=== PATIENT | male | born 1970 | race Caucasian/White ===

== ENCOUNTER 2018-10-26 16:34 | Emergency (ER) | payer SELFPAY ==
--- NOTE | 2018-10-26 17:14 | ER ---
Nurse's Notes [facility] Name: Austyn Guerrero Age: 48 yrs Sex: Male : 1970 Arrival Date: 10/26/2018 Time: 16:38 Bed 18 Private MD: Diagnosis: Localized edema;Localized allergic reaction due to bee stings Presentation: 10/26 16:44 Presenting complaint: Patient states: He got stung by bees in both hands, under neath aj1 his right eye, his back 2 days ago. Reports that he took Benadryl that night, today his joints are hurting and the sun was hurting him when he was at work. Transition of care: patient was not received from another setting of care. Onset: The symptoms/episode began/occurred 2 day(s) ago. Anaphylaxis evaluation, no signs or symptoms of anaphylaxis were noted. Onset of symptoms was October 24, 2018. Risk Assessment: Do you want to hurt yourself or someone else? Patient reports no desire to harm self or others. Initial Sepsis Screen: Does the patient meet any 2 criteria? No. Patient's initial sepsis screen is negative. Does the patient have a suspected source of infection? No. Patient's initial sepsis screen is negative. Care prior to arrival: None. 16:44 Method Of Arrival: Ambulatory aj1 16:44 Acuity: ANDRIY 4 aj1 Triage Assessment: 16:48 General: Appears in no apparent distress. uncomfortable, Behavior is calm, cooperative, aj1 appropriate for age. Pain: Complains of pain in face, back, abdomen, right hand, left hand and neck. Neuro: Level of Consciousness is awake, alert, obeys commands. Cardiovascular: Patient's skin is warm and dry. Respiratory: Airway is patent Respiratory effort is even, unlabored, Respiratory pattern is regular, symmetrical. Historical: - Allergies: 16:48 No Known Allergies; aj1 - Home Meds: 16:48 None [Active]; aj1 - PMHx: 16:48 None; aj1 - PSHx: 16:48 None; aj1 - Immunization history:: Flu vaccine is not up to date. - Social history:: Smoking status: Patient uses tobacco products, smokes one-half pack cigarettes per day. - Ebola Screening: : Patient denies travel to an Ebola-affected area in the 21 days before illness onset. - Family history:: not pertinent. - Hospitalizations: : No recent hospitalization is reported. Screenin:52 Abuse screen: Denies threats or abuse. Denies injuries from another. Nutritional hj screening: No deficits noted. Tuberculosis screening: No symptoms or risk factors identified. Fall Risk None identified. Assessment: 16:52 Respiratory: Airway is patent Respiratory effort is even, unlabored, Respiratory hj pattern is regular, symmetrical, Breath sounds are clear. 16:52 General: Appears in no apparent distress. uncomfortable, Behavior is calm, cooperative, hj appropriate for age. Pain: Complains of pain in neck and left hand and right hand and abdomen and back and face. Neuro: Level of Consciousness is awake, alert, obeys commands, Oriented to person, place, time, situation, Appropriate for age. Cardiovascular: Capillary refill < 3 seconds Patient's skin is warm and dry. GI: No signs and/or symptoms were reported involving the gastrointestinal system. : No signs and/or symptoms were reported regarding the genitourinary system. EENT: No signs and/or symptoms were reported regarding the EENT system. Derm: Reports pain. Musculoskeletal: No signs and/or symptoms reported regarding the musculoskeletal system. 17:16 Reassessment: IVF fluids running; 1L NS;. hj 17:43 Reassessment: Patient and/or family updated on plan of care and expected duration. Pain hj level reassessed. Patient is alert, oriented x 3, equal unlabored respirations, skin warm/dry/pink. D/C pending complete IVF infusion; Patient states feeling better. Patient states symptoms have improved. Vital Signs: 16:48 BP 130 / 74; Pulse 87; Resp 18; Temp 99.6(O); Pulse Ox 97% on R/A; Weight 90.72 kg (R); aj1 Height 5 ft. 8 in. (172.72 cm) (R); Pain 8/10; 18:09 BP 128 / 75; Pulse 82; Resp 18; Pulse Ox 100% on R/A; hj 16:48 Body Mass Index 30.41 (90.72 kg, 172.72 cm) [facility] ED Course: 16:38 Patient arrived in ED. mr 16:47 Triage completed. aj1 16:48 Arm band placed on Patient placed in an exam room. aj1 16:50 Shmuel Adkins, RN is Primary Nurse. hj 16:52 Patient has correct armband on for positive identification. Bed in low position. Call hj light in reach. Side rails up X 1. 16:57 William Wong MD is Attending Physician. rn 17:00 Inserted saline lock: 20 gauge in left antecubital area, using aseptic technique. Blood hj collected. 18:09 No provider procedures requiring assistance completed. IV discontinued, intact, hj bleeding controlled, No redness/swelling at site. Pressure dressing applied. Administered Medications: 17:06 Drug: SOLU-Medrol 125 mg Route: IVP; Site: left antecubital; hj 17:15 Follow up: Response: No adverse reaction hj 17:06 Drug: Benadryl 50 mg Route: IVP; Site: left antecubital; hj 17:15 Follow up: Response: No adverse reaction hj 17:06 Drug: NS 0.9% 1000 ml Route: IV; Rate: 1000 ml; Site: left antecubital; hj 18:10 Follow up: IV Status: Completed infusion; IV Intake: 1000ml hj Intake: 18:10 IV: 1000ml; Total: 1000ml. hj Outcome: 17:14 Discharge ordered by . rn 18:09 Discharged to home ambulatory. hj 18:09 Condition: stable 18:09 Discharge instructions given to patient, Instructed on discharge instructions, follow up and referral plans. medication usage, Demonstrated understanding of instructions, follow-up care, medications, Prescriptions given X 1. 18:10 Patient left the ED. hj Signatures: Emily Jones RN RN aj1 Breanne Henderson mr William Wong MD MD rn Joaquin, Henry, RN RN
--- NOTE | 2018-10-26 17:14 | EDPHYS ---
Physician Documentation [facility] Name: Austyn Guerrero Age: 48 yrs Sex: Male : 1970 Arrival Date: 10/26/2018 Time: 16:38 Bed 18 Private MD: ED Physician William Wong HPI: 10/26 17:07 This 48 yrs old Male presents to ER via Ambulatory with complaints of Bee rn Sting. 17:07 The patient presents with localized swelling. Onset: The symptoms/episode rn began/occurred yesterday. Associated signs and symptoms: Pertinent positives: swelling, Pertinent negatives: abdominal pain, Altered mental status chest pain, fever, shortness of breath, vomiting. Possible causes: bees. At home the patient or guardian has treated the symptoms with Benadryl. Severity of symptoms: At their worst the symptoms were moderate in the emergency department the symptoms are unchanged. The patient has experienced a previous episode. Reports stung by bees 2 days ago, was wearing "bee gloves", still got stung multiple times, got stung again today, no SOB, + mild localized swelling of both hands and face, no oral swelling or trouble breathing, no abd pain. . Historical: - Allergies: 16:48 No Known Allergies; aj1 - Home Meds: 16:48 None [Active]; aj1 - PMHx: 16:48 None; aj1 - PSHx: 16:48 None; aj1 - Immunization history:: Flu vaccine is not up to date. - Social history:: Smoking status: Patient uses tobacco products, smokes one-half pack cigarettes per day. - Ebola Screening: : Patient denies travel to an Ebola-affected area in the 21 days before illness onset. - Family history:: not pertinent. - Hospitalizations: : No recent hospitalization is reported. ROS: 17:07 Constitutional: Negative for fever, chills, and weight loss, Eyes: Negative for injury, rn pain, redness, and discharge, ENT: no oral swelling Cardiovascular: Negative for chest pain, palpitations, and edema, Respiratory: Negative for shortness of breath, cough, wheezing, and pleuritic chest pain, Abdomen/GI: Negative for abdominal pain, nausea, vomiting, diarrhea, and constipation, MS/Extremity: + swelling of both hands Neuro: + generalized weakness Exam: 17:07 Constitutional: This is a well developed, well nourished patient who is awake, alert, rn and in no acute distress. Head/Face: Normocephalic, mild paranasal swelling and erythema, no fluctuance ENT: No oral swelling or stridor Cardiovascular: Regular rate and rhythm. No pulse deficits. Respiratory: No increased work of breathing, no retractions or nasal flaring. Skin: Warm, dry, no evidence of cellulitis. MS/ Extremity: Pulses equal, no cyanosis. Neurovascular intact. Full, normal range of motion. + mild swelling of dorsum of bilateral hands, no fluctuance, no skin sloughing. No necrosis. No streaking up arms. Neuro: Awake and alert, GCS 15, oriented to person, place, time, and situation. Cranial nerves II-XII grossly intact. Motor strength 5/5 in all extremities. Sensory grossly intact. Cerebellar exam normal. Normal gait. Vital Signs: 16:48 BP 130 / 74; Pulse 87; Resp 18; Temp 99.6(O); Pulse Ox 97% on R/A; Weight 90.72 kg (R); aj1 Height 5 ft. 8 in. (172.72 cm) (R); Pain 8/10; 18:09 BP 128 / 75; Pulse 82; Resp 18; Pulse Ox 100% on R/A; hj 16:48 Body Mass Index 30.41 (90.72 kg, 172.72 cm) aj1 MDM: 16:57 Patient medically screened. rn 17:07 Differential diagnosis: angioedema, urticaria, localized allergic reaction. Data rn reviewed: vital signs, nurses notes, and as a result, I will discharge patient. Counseling: I had a detailed discussion with the patient and/or guardian regarding: the historical points, exam findings, and any diagnostic results supporting the discharge/admit diagnosis, the need for outpatient follow up, to return to the emergency department if symptoms worsen or persist or if there are any questions or concerns that arise at home. Special discussion: I discussed with the patient/guardian in detail that at this point there is no indication for admission to the hospital. It is understood, however, that if the symptoms persist or worsen the patient needs to return immediately for re-evaluation. 10/26 17:06 Order name: IV Start; Complete Time: 17:14 rn Administered Medications: 17:06 Drug: SOLU-Medrol 125 mg Route: IVP; Site: left antecubital; hj 17:15 Follow up: Response: No adverse reaction hj 17:06 Drug: Benadryl 50 mg Route: IVP; Site: left antecubital; hj 17:15 Follow up: Response: No adverse reaction hj 17:06 Drug: NS 0.9% 1000 ml Route: IV; Rate: 1000 ml; Site: left antecubital; hj 18:10 Follow up: IV Status: Completed infusion; IV Intake: 1000ml Disposition: 10/26/18 17:14 Discharged to Home. Impression: Localized edema, Localized allergic reaction due to bee stings. - Condition is Stable. - Discharge Instructions: Bee, Wasp, or Hornet Sting, Adult. - Prescriptions for Medrol ([place]) 4 mg Oral Tablets, Dose Pack - take 1 tablet by ORAL route as directed - follow package instructions; 1 packet. - Medication Reconciliation Form, Thank You Letter, Antibiotic Education, Prescription Opioid Use form. - Follow up: Private Physician; When: As needed; Reason: Recheck today's complaints, Re-evaluation by your physician. - Problem is new. - Symptoms have improved. Signatures: Emily Jones RN RN aj1 William Wong MD MD rn Joaquin, Henry, RN RN hj Corrections: (The following items were deleted from the chart) 18:10 17:14 10/26/2018 17:14 Discharged to Home. Impression: Localized edema; Localized hj allergic reaction due to bee stings. Condition is Stable. Forms are Medication Reconciliation Form, Thank You Letter, Antibiotic Education, Prescription Opioid Use. Follow up: Private Physician; When: As needed; Reason: Recheck today's complaints, Re-evaluation by your physician. Problem is new. Symptoms have improved. rn
[2018-10-26] MEDS ORDERED: DIPHENHYDRAMINE 50 MG/ML VIAL ONE (17:24)
[2018-10-26] MEDS ORDERED: METHYLPREDNISOLONE 125 MG INJ ONE (17:24)
[2018-10-26] MEDS ORDERED: NA CHLORIDE 0.9% 1,000 ML ONE (17:25)
[2018-10-26 18:15] VITALS: TEMP 99.6
[2018-10-26 18:16] VITALS: BP 128/75; O2SAT 100
== END 2018-10-26 18:10 | disposition home or self-care (01) ==
LOC: ER 16:34
DX: T63.441A Toxic effect of venom of bees, accidental (unintentional), initial encounter (principal); R60.9 Edema, unspecified; Y92.9 Unspecified place or not applicable; F17.210 Nicotine dependence, cigarettes, uncomplicated
CPT/HCPCS: 96361; 96374; 96375; 99284; J2930; J7030

== ENCOUNTER 2018-12-06 21:05 | Emergency (ER) | payer SELFPAY ==
--- NOTE | 2018-12-06 22:31 | ER ---
Nurse's Notes [facility] Name: Austyn Guerrero Age: 48 yrs Sex: Male : 1970 Arrival Date: 12/06/2018 Time: 21:08 Bed 24 Private MD: Diagnosis: Dental pain Presentation: 12/06 21:12 Presenting complaint: Patient states: "I have a tooth that is broke off at the gum for jd3 a long time now, but today it is hurting so bad that it is going through my hole head, I tired to go to the dentist, I have an appointment tomorrow.". Transition of care: patient was not received from another setting of care. Onset of symptoms was December 06, 2018. Risk Assessment: Do you want to hurt yourself or someone else? Patient reports no desire to harm self or others. Initial Sepsis Screen: Does the patient meet any 2 criteria? No. Patient's initial sepsis screen is negative. Does the patient have a suspected source of infection? No. Patient's initial sepsis screen is negative. Care prior to arrival: None. 21:12 Method Of Arrival: Ambulatory jd3 21:12 Acuity: ANDRIY 3 jd3 Historical: - Allergies: 21:14 No Known Allergies; jd3 - Home Meds: 21:14 None [Active]; jd3 - PMHx: 21:14 None; jd3 - PSHx: 21:14 None; jd3 - Immunization history:: Adult Immunizations up to date. - Social history:: Smoking status: Patient/guardian denies using tobacco, Patient uses street drugs, marijuana. - Ebola Screening: : Patient negative for fever greater than or equal to 101.5 degrees Fahrenheit, and additional compatible Ebola Virus Disease symptoms. Screenin:50 Abuse screen: Denies threats or abuse. Denies injuries from another. Nutritional aj1 screening: No deficits noted. Tuberculosis screening: No symptoms or risk factors identified. 22:30 Fall Risk None identified. lp1 Assessment: 21:50 General: Appears in no apparent distress. uncomfortable, Behavior is cooperative, aj1 restless. Pain: Complains of pain in left ear, left cheek, left sabianism and left jaw Pain does not radiate. Pain currently is 10 out of 10 on a pain scale. Neuro: Level of Consciousness is awake, alert, obeys commands, Oriented to person, place, time, situation. Cardiovascular: Patient's skin is warm and dry. Respiratory: Airway is patent Respiratory effort is even, unlabored, Respiratory pattern is regular, symmetrical. GI: No signs and/or symptoms were reported involving the gastrointestinal system. : No signs and/or symptoms were reported regarding the genitourinary system. EENT: Reports a broken tooth that has gotten infected. Derm: No signs and/or symptoms reported regarding the dermatologic system. Skin is pink, warm \\T\\ dry. normal. Musculoskeletal: Circulation, motion, and sensation intact. Swelling absent. Vital Signs: 21:15 BP 154 / 98; Pulse 69; Resp 20 S; Temp 98.1(O); Pulse Ox 98% on R/A; Weight 90.72 kg jd3 (R); Height 5 ft. 9 in. (175.26 cm) (R); Pain 10/10; 21:15 Body Mass Index 29.53 (90.72 kg, 175.26 cm) jd3 ED Course: 21:08 Patient arrived in ED. es 21:14 Triage completed. jd3 21:15 Arm band placed on. jd3 21:34 Emily Jones RN is Primary Nurse. aj1 21:45 Matthew Wilson NP is PHCP. pm1 21:45 Claus Houston MD is Attending Physician. pm1 21:50 Patient has correct armband on for positive identification. Bed in low position. Call aj1 light in reach. Side rails up X 1. 21:50 No provider procedures requiring assistance completed. aj1 22:00 Report received from URBANO Diaz. lp1 22:45 Patient did not have IV access during this emergency room visit. lp1 Administered Medications: 22:45 Drug: [place] 5 mg-325 mg 1 tabs Route: PO; lp1 22:45 Follow up: Response: Medication administered at discharge. lp1 Outcome: 22:30 Discharge ordered by . pm1 22:46 Discharged to home ambulatory, with friend. lp1 22:46 Condition: good 22:46 Discharge instructions given to patient, Instructed on discharge instructions, follow up and referral plans. medication usage, Demonstrated understanding of instructions, follow-up care, medications, Prescriptions given X 2. 22:46 Patient left the ED. lp1 Signatures: Emily Jones RN RN aj1 Gertrudis Rai Laura, RN RN lp1 Matthew Wilson, [employer]NER pm1 Adebayo Olmedo RN RN jd3 Corrections: (The following items were deleted from the chart) 21:16 21:12 Presenting complaint: Patient states: "I have a tooth that is broke off at the jd3 gum for a long time now, but today it is hurting so bad that it is going through my hole head." jd3
--- NOTE | 2018-12-06 22:31 | EDPHYS ---
Physician Documentation [facility] Name: Austyn Guerrero Age: 48 yrs Sex: Male : 1970 Arrival Date: 12/06/2018 Time: 21:08 Bed 24 Private MD: ED Physician Claus Houston HPI: 12/06 22:29 This 48 yrs old Male presents to ER via Ambulatory with complaints of pm1 Toothache. 22:29 The patient presents with pain. The problem is located in the upper left first molar. pm1 Onset: The symptoms/episode began/occurred yesterday. Duration: The symptoms are continuous. Modifying factors: The symptoms are alleviated by nothing, the symptoms are aggravated by food. Associated signs and symptoms: Pertinent negatives: fever, inability to eat, swelling, vomiting. Severity of symptoms: in the emergency department the symptoms are actually worse. The patient has experienced similar episodes in the past, multiple times. The patient has not recently seen a physician. Has dentist appointment tomorrow . Historical: - Allergies: 21:14 No Known Allergies; jd3 - Home Meds: 21:14 None [Active]; jd3 - PMHx: 21:14 None; jd3 - PSHx: 21:14 None; jd3 - Immunization history:: Adult Immunizations up to date. - Social history:: Smoking status: Patient/guardian denies using tobacco, Patient uses street drugs, marijuana. - Ebola Screening: : Patient negative for fever greater than or equal to 101.5 degrees Fahrenheit, and additional compatible Ebola Virus Disease symptoms. ROS: 22:29 Constitutional: Negative for fever, chills, and weight loss, Eyes: Negative for injury, pm1 pain, redness, and discharge, Neck: Negative for injury, pain, and swelling, Cardiovascular: Negative for chest pain, palpitations, and edema, Respiratory: Negative for shortness of breath, cough, wheezing, and pleuritic chest pain, Abdomen/GI: Negative for abdominal pain, nausea, vomiting, diarrhea, and constipation, Back: Negative for injury and pain, MS/Extremity: Negative for injury and deformity, Skin: Negative for injury, rash, and discoloration. 22:29 Neuro: Negative for headache, weakness, numbness, tingling, and seizure. 22:29 ENT: Positive for dental pain, Negative for ear pain. Exam: 22:29 Constitutional: This is a well developed, well nourished patient who is awake, alert, pm1 and in no acute distress. Head/Face: Normocephalic, atraumatic. Eyes: Pupils equal round and reactive to light, extra-ocular motions intact. Lids and lashes normal. Conjunctiva and sclera are non-icteric and not injected. Cornea within normal limits. Periorbital areas with no swelling, redness, or edema. 22:29 Neck: Trachea midline, no thyromegaly or masses palpated, and no cervical lymphadenopathy. Supple, full range of motion without nuchal rigidity, or vertebral point tenderness. No Meningismus. Chest/axilla: Normal chest wall appearance and motion. Nontender with no deformity. No lesions are appreciated. Cardiovascular: Regular rate and rhythm with a normal S1 and S2. No gallops, murmurs, or rubs. Normal PMI, no JVD. No pulse deficits. Respiratory: Lungs have equal breath sounds bilaterally, clear to auscultation and percussion. No rales, rhonchi or wheezes noted. No increased work of breathing, no retractions or nasal flaring. Abdomen/GI: Soft, non-tender, with normal bowel sounds. No distension or tympany. No guarding or rebound. No evidence of tenderness throughout. Back: No spinal tenderness. No costovertebral tenderness. Full range of motion. Skin: Warm, dry with normal turgor. Normal color with no rashes, no lesions, and no evidence of cellulitis. MS/ Extremity: Pulses equal, no cyanosis. Neurovascular intact. Full, normal range of motion. 22:29 ENT: External ear(s): are unremarkable, Ear canal(s): are normal, TM's: are normal, Nose: is normal, Mouth: is normal, Dental exam: dental caries, specifically in the upper left first molar (#14). 22:29 Neuro: Orientation: is normal, Motor: is normal, moves all fours, Sensation: is normal, no obvious gross deficits. Vital Signs: 21:15 BP 154 / 98; Pulse 69; Resp 20 S; Temp 98.1(O); Pulse Ox 98% on R/A; Weight 90.72 kg jd3 (R); Height 5 ft. 9 in. (175.26 cm) (R); Pain 10; 21:15 Body Mass Index 29.53 (90.72 kg, 175.26 cm) jd3 MDM: 22:03 Patient medically screened. [facility] 22:29 Data reviewed: vital signs. Data interpreted: Pulse oximetry: on room air is 98 %. pm1 Interpretation: normal. Counseling: I had a detailed discussion with the patient and/or guardian regarding: the historical points, exam findings, and any diagnostic results supporting the discharge/admit diagnosis, the need for outpatient follow up, to return to the emergency department if symptoms worsen or persist or if there are any questions or concerns that arise at home. Administered Medications: 22:45 Drug: [place] 5 mg-325 mg 1 tabs Route: PO; lp1 22:45 Follow up: Response: Medication administered at discharge. lp1 Disposition: 12/07 09:10 Co-signature as Attending Physician, Claus Houston MD I agree with the assessment and [facility] plan of care. Disposition: 12/06/18 22:30 Discharged to Home. Impression: Dental pain. - Condition is Stable. - Discharge Instructions: Dental Pain. - Prescriptions for Augmentin 875- 125 mg Oral Tablet - take 1 tablet by ORAL route every 12 hours for 10 days; 20 tablet. Tylenol- Codeine #3 300-30 mg Oral Tablet - take 2 tablets by ORAL route every 6 hours As needed; 20 tablet. - Medication Reconciliation Form, Thank You Letter, Antibiotic Education, Prescription Opioid Use form. - Follow up: Emergency Department; When: As needed; Reason: Worsening of condition. Follow up: Private Physician; When: 2 - 3 days; Reason: Recheck today's complaints, Continuance of care, Re-evaluation by your physician. - Problem is new. - Symptoms have improved. Signatures: Claus Houston MD MD cha Pena, Laura RN RN lp1 Matthew Wilson, [employer] SERVICE REPRESENTATIVE pm1 Adebayo Olmedo RN RN jd3 Corrections: (The following items were deleted from the chart) 12/06 22:46 22:30 12/06/2018 22:30 Discharged to Home. Impression: Dental pain. Condition is lp1 Stable. Forms are Medication Reconciliation Form, Thank You Letter, Antibiotic Education, Prescription Opioid Use. Follow up: Emergency Department; When: As needed; Reason: Worsening of condition. Follow up: Private Physician; When: 2 - 3 days; Reason: Recheck today's complaints, Continuance of care, Re-evaluation by your physician. Problem is new. Symptoms have improved. pm1
[2018-12-06] MEDS ORDERED: HYDROCODONE/APAP 5/325 MG TAB ONE (22:54)
[2018-12-08 18:01] VITALS: BP 154/98; TEMP 98.1; O2SAT 98
== END 2018-12-06 22:46 | disposition home or self-care (01) ==
LOC: ER 21:05
DX: K08.89 Other specified disorders of teeth and supporting structures (principal)
CPT/HCPCS: 99283

== ENCOUNTER 2019-07-25 11:42 | Emergency (ER) | payer BC, SELFPAY ==
--- OUTSIDE RECORDS SUMMARY | 2019-07-25 11:47 | XMS REPORT ---
:1970 [facility] Address [address] [place] [address] [address] [place] [address] Care Team Providers Name Role Phone Unavailable Unavailable Unavailable Problems This patient has no known problems. Allergies, Adverse Reactions, Alerts This patient has no known allergies or adverse reactions. Medications This patient has no known medications.
--- OUTSIDE RECORDS SUMMARY | 2019-07-25 11:48 | XMS REPORT | Summary of Care ---
:1970 Author Organization [facility] - [facility] Address [address] [place] [id number] Care Team Providers Name Role Phone Pcp, Patient Does Not Have A Primary Care Provider Reason for Referral Radiology Services (NIKKIE) Status Reason Specialty Diagnoses / Referred By Referred To Procedures Contact Contact New Request Diagnostic Diagnoses Generalized abdominal pain Tip Coleman Radiology Procedures XR ABDOMEN ACUTE SERIES III, PA [address] [place] [address] [place] [address] Radiology Services (NIKKIE) Status Reason Specialty Diagnoses / Referred By Referred To Procedures Contact Contact New Request Diagnostic Diagnoses Generalized abdominal pain Tip Coleman Radiology Procedures XR ABDOMEN ACUTE SERIES III, PA [address] [place] [address] [facility] [place] [address] Reason for Visit Reason Comments Flank Pain Auth/Cert Status Reason Specialty Diagnoses / Referred By Referred To Procedures Contact Contact Emergency Medicine Diagnoses FLANK PAIN [facility] [address] [place] [address] [place] [address] Encounter Details Date Type Department Care Team Description 02/03/2019 Emergency [facility]Emergency Tip Coleman III, Generalized abdominal pain (Primary Dx); Department PA Urinary tract infection without hematuria, site unspecified [address] [place] [address] [address] [place], [place] [id number] [place] [address] [phone] Allergies No Known Allergiesdocumented as of this encounter (statuses as of 02/03/2019) Medications Medication Sig Dispensed Refills Start Date End Date Status proMETHazine Take 1 Tab by 12 Tab 0 06/17/2015 Active (PHENERGAN) 25 mg mouth every 6 tablet (six) hours as needed for Nausea and Vomiting (N/V) or Other (itching and rash). Nitrofurantoin&Nit. Take 1 capsule 20 capsule 0 02/03/2019 02/13/2019 Active Macrocryst (MACROBID) by mouth 2 100 mg (two) times capsuleIndications: daily for 10 Generalized abdominal days. pain, Urinary tract infection without hematuria, site unspecified phenazopyridine 200 mg Take 1 tablet 9 tablet 0 02/03/2019 Active tabletIndications: by mouth 3 Generalized abdominal (three) times pain, Urinary tract daily. infection without hematuria, site unspecified documented as of this encounter (statuses as of 02/03/2019) Active Problems No known active problemsdocumented as of this encounter (statuses as of 2018) Social History Tobacco Use Types Packs/Day Years Used Date Never Smoker Comments: patient has not smoked marajuana since 2009 Sex Assigned at Date Recorded Not on file Job Start Date Occupation Industry Not on file Not on file Not on file Travel History Travel Start Travel End No recent travel history available. documented as of this encounter Last Filed Vital Signs Vital Sign Reading Time Taken Comments Blood Pressure 115/73 02/03/2019 8:00 PM CDT Pulse 74 02/03/2019 8:00 PM CDT Temperature 36.8 C (98.2 F) 02/03/2019 7:07 PM CDT Respiratory Rate 20 02/03/2019 8:00 PM CDT Oxygen Saturation 98% 02/03/2019 8:00 PM CDT Inhaled Oxygen Concentration - - Weight 81.6 kg (180 lb) 02/03/2019 7:07 PM CDT Height 172.7 cm (5' 8") 02/03/2019 7:07 PM CDT Body Mass Index 27.37 02/03/2019 7:07 PM CDT documented in this encounter Discharge Instructions Letty Sheriff RN - 02/03/2019 @@@@@@@@@@@@@@@@@@@@@@@@@@@@@@@@@@@@@@@@@@@@@@@@@@@@@ [facility] RETURN TO WORK / SCHOOL EXCUSE Austyn Guerrero WAS SEEN IN THE ER AND DISCHUrinARGED 02/03/2019 TODAY, 8:32 PM & May return to Work / School / Incarceration on 02/04/19 with No limitations unless indicated below. ___The following limitations apply until pt is seen by Physician and cleared to return to normal activity. ___ Light duty ___ No Sports ___ No work ___ Do not return until fever free for 24 hours. ___ No school Ed Jared [facility] [address] [place] [address] [place] [address] If you are unprepared to return to work tomorrow due to pain please give this note to your employer and make a follow up appointment with your MD for further evaluation and limitations. ### The patient may have been given Narcotic pain medications during their stay in the ED that may show up on a Drug Screen. The hospital discharge paper work will identify these medications. @@@@@@@@@@@@@@@@@@@@@@@@@@@@@@@@@@@@@@@@@@@@@@@@@@@@@ Thank you for trusting us with your care. The emergency room is the first stop in the medical management of your complaint . Our primary pupose is to identify life threatening emergancies and to rapidly address those issues. We are releasing you today after evaluation for emergency or life threatening problems related to your complaint. At this time we are comfortable that your condition is stable enough to go home, take oral medications and follow up for further care. If you can't afford a doctor OR MEDICATIONS consider [facility], [address] [place] [address]; [phone] Medications [employer] WILL SHOW YOU WHERE YOU CAN GET YOUR MEDICATIONS CHEAPEST. 1. Call your doctor and let them know you were seen for ICD-10-CM ICD-9-CM 1. Generalized abdominal pain R10.84 789.07 2. Urinary tract infection without hematuria, site unspecified N39.0 599.0 2. Schedule a follow up within 3 days of your ER visit. 3. Take your prescriptions to the pharmacy and get them filled today. 4. Take the medications as prescribed and until completed. 5. You have been referred for further care 6. You may need additional tests Your doctors will help you figure out what you need and how to get them done. 7. Please read all paperwork provided to you. Additional instructions See Attached documented in this encounter Plan of Treatment Name Type Priority Associated Diagnoses Date/Time XR ABDOMEN ACUTE IMAGING NIKKIE Generalized abdominal 02/03/2019 7:47 PM SERIES pain CDT Health Maintenance Due Date Last Done Comments DTaP,Tdap,and Td Vaccines (1 - 1987 Tdap) COLONOSCOPY 2018 Zoster Recombinant Vaccine 2018 (SHINGRIX) (1 of 2) INFLUENZA VACCINE (#1) 2019 PNEUMOCOCCAL 0-64 YEARS COMBINED Aged Out No longer eligible based on SERIES patient's age to complete this topic documented as of this encounter Procedures Procedure Name Priority Date/Time Associated Diagnosis Comments URINALYSIS STAT 02/03/2019 8:03 Generalized Results for this PM CDT abdominal pain procedure are in the results section. CBC WITH DIFFERENTIAL STAT 02/03/2019 7:57 Generalized Results for this PM CDT abdominal pain procedure are in the results section. CBC WITH DIFF Routine 02/03/2019 7:57 Generalized Results for this PM CDT abdominal pain procedure are in the results section. COMP. METABOLIC PANEL STAT 02/03/2019 7:57 Generalized Results for this (38411) PM CDT abdominal pain procedure are in the results section. LIPASE STAT 02/03/2019 7:57 Generalized Results for this PM CDT abdominal pain procedure are in the results section. XR ABDOMEN ACUTE NIKKIE 02/03/2019 7:47 Generalized SERIES PM CDT abdominal pain Procedure Note - [facility], Radiant Results Inft User - 02/03/2019 8:07 PM CDT EXAM: XR ABDOMEN ACUTE SERIES COMPARISON: None HISTORY: left flank pain FINDINGS: Lungs: The lungs are clear. No pleural effusion or pneumothorax is identified. Heart/Mediastinum: The cardiomediastinal silhouette is normal in size. Abdomen: Nonobstructive bowel gas pattern. Bones: Chronic posttraumatic deformity of the left distal clavicle. Multilevel spinal osteophytosis. IMPRESSION No radiographic evidence of acute cardiopulmonary process. Nonobstructive bowel gas pattern. NOTICE OF PRIVACY PRACTICES Routine 02/03/2019 6:59 PM CDT documented in this encounter Results URINALYSIS (02/03/2019 8:03 PM CDT) APPEARANCE Clear Clear [facility] COLOR [place] (A) Yellow [facility] PH 7.5 4.8 - 8.0 [facility] SP GRAVITY 1.010 1.003 - 1.030 [facility] GLU U QUAL 100 mg/dL (A) Negative [facility] BLOOD Negative Negative [facility] KETONES Negative Negative [facility] PROTEIN 30 mg/dL (A) Negative [facility] UROBILIN 4.0 mg/dL (A) 0-1.0 mg/dL [facility] BILIRUBIN Moderate (A) Negative [facility] NITRITE Positive (A) Negative [facility] LEUK AMENA Negative Negative [facility] RBC/HPF 0 0 - 3 HPF [facility] WBC/HPF 0 0 - 5 HPF [facility] BACTERIA Negative Negative [facility] Ictotest Positive [facility] Specimen Urine - URINE, CLEAN CATCH Performing Organization Address City/State/Zipcode Phone Number [facility] CLIA: [id number], [address] [place] [address] CBC WITH DIFFERENTIAL (02/03/2019 7:57 PM CDT) Pathologist [facility] WBC 7.16 4.20 - 10.70 [facility] 10*3/L [facility] RBC 4.62 4.26 - 5.52 [facility] 10*6/L [facility] HGB 14.1 12.2 - 16.4 g/dL [facility] HCT 40.5 38.4 - 49.3 % [facility] MCV 87.7 81.7 - 95.6 fL [facility] MCH 30.5 26.1 - 32.7 pg [facility] MCHC 34.8 31.2 - 35.0 g/dL [facility] [place] 42.3 38.5 - 51.6 fL [facility] RDW-CV 13.3 12.1 - 15.4 % [facility] [place] 253 150 - 328 [facility] 10*3/L H[facility] MPV 9.7 (L) 9.8 - 13.0 fL [facility] NRBC/100 WBC 0.0 0.0 - 10.0 /100 [facility] WBCs [facility] NRBC x10^3 <0.01 10*3/L [facility] GRAN MAT (NEUT) % 59.6 % [facility] IMM GRAN % 0.10 % [facility] LYMPH % 27.1 % [facility] MONO % 7.5 % [facility] EOS % 4.7 % [facility] BASO % 1.0 % [facility] GRAN MAT x10^3(ANC) 4.26 1.99 - 6.95 [facility] 10*3/uL [facility] IMM GRAN x10^3 <0.03 0.00 - 0.06 [facility] 10*3/uL [facility]ITAL [facility] LYMPH x10^3 1.94 1.09 - 3.23 [facility] 10*3/uL [facility]ITAL [facility] MONO x10^3 0.54 0.36 - 1.02 [facility] 10*3/uL H[facility]ITAL [facility] EOS x10^3 0.34 0.06 - 0.53 [facility] 10*3/uL [facility] BASO x10^3 0.07 0.01 - 0.09 [facility] 10*3/uL [facility] Specimen Blood - VENOUS Performing Organization Address City/[facility]/Zipcode Phone Number [facility] CLIA: [id number], [address] [place] [address] LIPASE (02/03/2019 7:57 PM CDT) LIPASE 140 0 - 220 U/L [facility] Specimen Blood - VENOUS Performing Organization Address City/[facility]/Zipcode Phone Number [facility] CLIA: [id number], [address] [place] [id number] [address] COMP. METABOLIC PANEL (26096) (02/03/2019 7:57 PM CDT) NA 143 135 - 145 [facility] mmol/L [facility] K 3.6 3.5 - 5.0 [facility] mmol/L HOSPITAL [facility] CL 107 98 - 108 mmol/L [facility] CO2 TOTAL 29 23 - 31 mmol/L [facility] AGAP 7 2 - 16 [facility] BUN 11 7 - 23 mg/dL [facility] GLUCOSE 97 70 - 110 mg/dL [facility] CREATININE 0.80 0.60 - 1.25 [facility] mg/dL [facility] TOTAL BILI 0.4 0.1 - 1.1 mg/dL [facility] CALCIUM 8.3 (L) 8.6 - 10.6 [facility] mg/dL [facility] T PROTEIN 6.6 6.3 - 8.2 g/dL [facility] ALBUMIN 3.7 3.5 - 5.0 g/dL [facility] ALK PHOS 73 34 - 122 U/L [facility] ALT(SGPT) 36 9 - 51 U/L [facility] AST(SGOT) 34 13 - 40 U/L [facility] eGFR Calculation 102.3 mL/min/1.73m2 [facility] ([facility] LABORATORY Swedish) eGFR Calculation 124.0 mL/min/1.73m2 [facility] () [facility] Specimen Blood - VENOUS Narrative Performed At Association of Glomerular Filtration Rate (GFR) [facility] and Staging of Kidney Disease* + + +- + | GFR (mL/min/1.73 m2)| With Kidney Damage|Without Kidney Damage + + +- + |>90| Stage one| Normal + + +- + |60-89|S tage two| Decreased GFR + + +- + |30-59|S tage three| Stage three + + +- + |15-29|S tage four | Stage four + + +- + |<15 (or dialysis)|Stage five | Stage five + + +- + *Each stage assumes the associated GFR level has been in effect for at least three months.Stages 1 to 5, with or without kidney disease, indicate chronic kidney disease. Notes: Determination of stages one and two (with eGFR >59mL/min/1.73 m2) requires estimation of kidney damage for at least three months as defined by structural or functional abnormalities of the kidney, manifested by either: Pathological abnormalities or Markers of kidney damage (including abnormalities in the composition of the blood or urine or abnormalities in imaging tests). Performing Organization Address City/State/Zipcode Phone Number [facility] CLIA: [id number], [address] [place] [address] documented in this encounter Visit Diagnoses Diagnosis Generalized abdominal pain - Primary Abdominal pain, generalized Urinary tract infection without hematuria, site unspecified documented in this encounter Administered Medications Medication Order MAR Action Action Date Dose Rate Site NaCl 0.9% (NS) bolus New Bag 02/03/2019 8:04 PM CDT 1,000 mL 999 mL/hr infusion 1,000 mL at 999 mL/hr, 1,000 mL, IV Infusion, ONCE, 1 dose, Sylvia 02/03/19 at 2015, STAT documented in this encounter
[2019-07-25] MEDS ORDERED: NA CHLORIDE 0.9% 1,000 ML ONE (12:53)
[2019-07-25] MEDS ORDERED: ASPIRIN 81 MG CHEWABLE TABLET ONE (12:53)
[2019-07-25] MEDS ORDERED: KETOROLAC 30 MG/ML INJ ONE (12:53)
[2019-07-25 12:57] LABS: Absolute Lymphocytes (CBC) 0.5 K/uL (0.7-4.9); Basophils % 0.7 % (0-1.3); Lymphocytes % 12.9 % (15.3-44.8); MPV 7.9 fL (7.6-11.3); RBC Red Blood Cell Count 5.28 M/uL (4.33-5.43)
[2019-07-25 13:20] LABS: ALT/SGPT 114 U/L (12-78); Albumin 3.7 g/dL (3.4-5.0); Alkaline Phosphatase 68 U/L (45-117); BUN Blood Urea Nitrogen 13 mg/dL (7-18); Bicarbonate 26 mmol/L (21-32); Bilirubin Direct 0.2 mg/dL (0-0.2); Bilirubin Total 0.6 mg/dL (0.2-1.0); Glucose Level 82 mg/dL (74-106); Magnesium 2.1 mg/dL (1.8-2.4); NT PRO-BNP 157 pg/mL (<125); Potassium 4.1 mmol/L (3.5-5.1); Sodium Level 137 mmol/L (136-145); Troponin (Emerg Dept Use Only) < 0.02 ng/mL (0.0-0.045)
--- NOTE | 2019-07-25 13:31 | RAD REPORT ---
EXAM DESCRIPTION: Sonia Single View07/25/2019 1:20 pm CLINICAL HISTORY: Chest pain COMPARISON: none FINDINGS: The lungs appear clear of acute infiltrate. The heart is normal size. Old distal left clavicular fracture IMPRESSION: No acute abnormalities displayed
[2019-07-25 13:32] LABS: AST/SGOT 331 U/L (15-37)
[2019-07-25 13:44] LABS: Protime INR 1.08
--- NOTE | 2019-07-25 14:09 | EDPHYS ---
Physician Documentation [facility] Name: Austyn Guerrero Age: 49 yrs Sex: Male : 1970 Arrival Date: 07/25/2019 Time: 11:46 Bed 24 Private MD: ED Physician Claus Houston HPI: 07/25 12:28 This 49 yrs old Male presents to ER via Wheelchair with complaints of Chest felicia Pain. 12:28 The patient or guardian reports chest pain that is located primarily in the anterior felicia chest wall, right. Onset: 1 day(s) ago. The pain does not radiate. The chest pain is described as aching, sharp. Duration: The patient or guardian reports a single episode, that is still ongoing, and unchanged. Severity of pain: At its worst the pain was mild in the emergency department the pain is unchanged. The patient has not experienced similar symptoms in the past. Historical: - Allergies: 12:06 No Known Allergies; vc - Home Meds: 12:06 CBD oil [Active]; vc - PMHx: 12:06 None; vc - PSHx: 12:06 None; vc - Immunization history:: Adult Immunizations up to date. - Coronavirus screen:: The patient has NOT traveled to [place] in the past 14 days. - Social history:: Smoking status: Patient uses street drugs, marijuana, marijuana but states just switch to CBD so he can pass a drug test.. - Family history:: not pertinent. - Ebola Screening: : No symptoms or risks identified at this time. ROS: 12:28 Constitutional: Negative for fever, chills, and weight loss, Eyes: Negative for injury, felicia pain, redness, and discharge, ENT: Negative for injury, pain, and discharge, Neck: Negative for injury, pain, and swelling, Cardiovascular: Negative for chest pain, palpitations, and edema, Respiratory: Negative for shortness of breath, cough, wheezing, and pleuritic chest pain, Abdomen/GI: Negative for abdominal pain, nausea, vomiting, diarrhea, and constipation, Back: Negative for injury and pain, : Negative for injury, bleeding, discharge, and swelling, MS/Extremity: Negative for injury and deformity, Skin: Negative for injury, rash, and discoloration, Neuro: Negative for headache, weakness, numbness, tingling, and seizure, Psych: Negative for depression, anxiety, suicide ideation, homicidal ideation, and hallucinations, Allergy/Immunology: Negative for hives, rash, and allergies, Endocrine: Negative for neck swelling, polydipsia, polyuria, polyphagia, and marked weight changes, Hematologic/Lymphatic: Negative for swollen nodes, abnormal bleeding, and unusual bruising. Exam: 12:28 Constitutional: This is a well developed, well nourished patient who is awake, alert, felicia and in no acute distress. Head/Face: Normocephalic, atraumatic. Eyes: Pupils equal round and reactive to light, extra-ocular motions intact. Lids and lashes normal. Conjunctiva and sclera are non-icteric and not injected. Cornea within normal limits. Periorbital areas with no swelling, redness, or edema. ENT: Nares patent. No nasal discharge, no septal abnormalities noted. Tympanic membranes are normal and external auditory canals are clear. Oropharynx with no redness, swelling, or masses, exudates, or evidence of obstruction, uvula midline. Mucous membranes moist. Neck: Trachea midline, no thyromegaly or masses palpated, and no cervical lymphadenopathy. Supple, full range of motion without nuchal rigidity, or vertebral point tenderness. No Meningismus. Cardiovascular: Regular rate and rhythm with a normal S1 and S2. No gallops, murmurs, or rubs. Normal PMI, no JVD. No pulse deficits. Respiratory: Lungs have equal breath sounds bilaterally, clear to auscultation and percussion. No rales, rhonchi or wheezes noted. No increased work of breathing, no retractions or nasal flaring. Abdomen/GI: Soft, non-tender, with normal bowel sounds. No distension or tympany. No guarding or rebound. No evidence of tenderness throughout. Back: No spinal tenderness. No costovertebral tenderness. Full range of motion. Male : Normal genitalia with no discharge or lesions. Skin: Warm, dry with normal turgor. Normal color with no rashes, no lesions, and no evidence of cellulitis. MS/ Extremity: Pulses equal, no cyanosis. Neurovascular intact. Full, normal range of motion. Neuro: Awake and alert, GCS 15, oriented to person, place, time, and situation. Cranial nerves II-XII grossly intact. Motor strength 5/5 in all extremities. Sensory grossly intact. Cerebellar exam normal. Normal gait. Psych: Awake, alert, with orientation to person, place and time. Behavior, mood, and affect are within normal limits. 12:28 Chest/axilla: Inspection: normal, Palpation: tenderness, that is mild, of the anterior aspect of right upper chest and mid-sternal area. 12:30 Musculoskeletal/extremity: DVT Exam: No signs of deep vein thrombosis. no pain, no felicia swelling, no tenderness, negative Homans' sign noted on exam, no appreciated bluish discoloration, no erythema, no increased warmth. Vital Signs: 12:08 BP 108 / 79; Pulse 90; Resp 21; Temp 98.4; Pulse Ox 100% on R/A; Weight 88.45 kg; vc Height 5 ft. 8 in. (172.72 cm); Pain 10/10; 13:00 BP 102 / 83; Pulse 77; Resp 15; Pulse Ox 97% on R/A; vc 14:00 BP 121 / 78; Pulse 80; Resp 23; Pulse Ox 97% on R/A; vc 14:30 Temp 99.2(O); vc 12:08 Body Mass Index 29.65 (88.45 kg, 172.72 cm) vc MDM: 11:51 Patient medically screened. [facility] 12:30 Data reviewed: vital signs, nurses notes, lab test result(s), EKG, radiologic studies, felicia plain films. 07/25 12:27 Order name: Basic Metabolic Panel; Complete Time: 14:05 [facility] 07/25 12:27 Order name: CBC with Diff [facility] 07/25 12:27 Order name: LFT's; Complete Time: 14:05 [facility] 07/25 12:27 Order name: Magnesium; Complete Time: 14:05 [facility] 07/25 12:27 Order name: NT PRO-BNP; Complete Time: 14:05 [facility] 07/25 12:27 Order name: PT-INR; Complete Time: 14:05 [facility] 07/25 12:27 Order name: Troponin (emerg Dept Use Only); Complete Time: 14:05 [facility] 07/25 12:27 Order name: XRAY Chest (1 view) [facility] 07/25 12:28 Order name: Flu [facility] 07/25 12:59 Order name: CBC with Automated Diff [facility] 07/25 13:05 Order name: Influenza Screen (A [facility] 07/25 14:39 Order name: CBC Smear Scan [facility] 07/25 15:02 Order name: RAD [facility] 07/25 12:27 Order name: EKG; Complete Time: 12:32 [facility] 07/25 12:27 Order name: Cardiac monitoring; Complete Time: 14:30 [facility] 07/25 12:27 Order name: EKG - Nurse/Tech; Complete Time: 14:30 [facility] 07/25 12:27 Order name: IV Saline Lock; Complete Time: 14:31 [facility] 07/25 12:27 Order name: Labs collected and sent; Complete Time: 14:31 [facility] 07/25 12:27 Order name: O2 Per Protocol; Complete Time: 14:31 [facility] 07/25 12:27 Order name: O2 Sat Monitoring; Complete Time: 14:31 [facility] 07/25 13:00 Order name: Labs - recollect needed; Complete Time: 14:28 ss Administered Medications: 12:55 Drug: TORadol 30 mg Route: IVP; Site: right forearm; vc 13:55 Follow up: Response: No adverse reaction; Pain is decreased vc 12:55 Drug: NS 0.9% 1000 ml Route: IV; Rate: 1 bolus; Site: right forearm; vc 13:55 Follow up: IV Status: Completed infusion; IV Intake: 1000ml vc 12:56 Drug: Aspirin 162 mg Route: PO; vc 13:55 Follow up: Response: No adverse reaction; Pain is decreased vc 14:38 Drug: Tamiflu 75 mg Route: PO; vc 14:38 Follow up: Response: Medication administered at discharge. vc 14:38 Follow up: Response: Medication administered at discharge. vc Disposition: 07/25/19 14:06 Discharged to Home. Impression: Chest pain, unspecified, Chondrocostal junction syndrome [Tietze], Influenza due to identified novel influenza A virus. - Condition is Stable. - Discharge Instructions: Nonspecific Chest Pain, Chest Wall Pain, Costochondritis, Influenza, Adult, Chest Wall Pain, Myrb-ob-Oepn, Nonspecific Chest Pain, Hnxl-xd-Vvcf, Influenza, Adult, Xzny-ob-Zkhi, Aspirin and Your Heart. - Prescriptions for Ibuprofen 600 mg Oral Tablet - take 1 tablet by ORAL route every 8 hours As needed take with food; 24 tablet. Tylenol- Codeine #3 300-30 mg Oral Tablet - take 2 tablets by ORAL route every 6 hours As needed; 26 tablet. Tamiflu 75 mg Oral Capsule - take 1 tablet by ORAL route every 12 hours for 5 days; 10 tablet. - Medication Reconciliation Form, Thank You Letter, Antibiotic Education, Prescription Opioid Use, Work release form form. - Follow up: Private Physician; When: 2 - 3 days; Reason: Recheck today's complaints, Continuance of care, Re-evaluation by your physician. - Problem is new. - Symptoms have improved. Signatures: Dispatcher [employer] EDAK Claus Houston MD MD cha Smirch, Shelby, RN RN ss Alicia Florez RN RN vc Corrections: (The following items were deleted from the chart) 15:07 14:06 07/25/2019 14:06 Discharged to Home. Impression: Chest pain, unspecified; vc Chondrocostal junction syndrome [Tietze]; Influenza due to identified novel influenza A virus. Condition is Stable. Discharge Instructions: Nonspecific Chest Pain, Chest Wall Pain, Costochondritis, Chest Wall Pain, Kbxm-[id number]-[id number], Nonspecific Chest Pain, Ockd-cp-Hhos, Aspirin and Your Heart, Influenza, Adult, Influenza, Adult, Dtuw-hg-Mgmm. Prescriptions for Ibuprofen 600 mg Oral Tablet - take 1 tablet by ORAL route every 8 hours As needed take with food; 24 tablet, Tylenol-Codeine #3 300-30 mg Oral Tablet - take 2 tablets by ORAL route every 6 hours As needed; 26 tablet, Tamiflu 75 mg Oral Capsule - take 1 tablet by ORAL route every 12 hours for 5 days; 10 tablet. and Forms are Medication Reconciliation Form, Thank You Letter, Antibiotic Education, Prescription Opioid Use. Follow up: Private Physician; When: 2 - 3 days; Reason: Recheck today's complaints, Continuance of care, Re-evaluation by your physician. Problem is new. Symptoms have improved. felicia
--- NOTE | 2019-07-25 14:09 | ER ---
Nurse's Notes [facility] Name: Austyn Guerrero Age: 49 yrs Sex: Male : 1970 Arrival Date: 07/25/2019 Time: 11:46 Bed 24 Private MD: Diagnosis: Chest pain, unspecified;Chondrocostal junction syndrome [Tietze];Influenza due to identified novel influenza A virus Presentation: 07/25 12:02 Presenting complaint: Patient states: "I started having chest pain last night, I worked vc out last week so it could be from that. I am also coughing up black stuff, I have been smoking CBD oil and I heard its bad for you.". Transition of care: patient was not received from another setting of care. Onset of symptoms was July 24, 2018. Risk Assessment: Do you want to hurt yourself or someone else? Patient reports no desire to harm self or others. Initial Sepsis Screen: Does the patient meet any 2 criteria? No. Patient's initial sepsis screen is negative. Does the patient have a suspected source of infection? No. Patient's initial sepsis screen is negative. Care prior to arrival: None. 12:02 Method Of Arrival: Wheelchair vc 12:02 Acuity: ANDRIY 3 vc Triage Assessment: 12:00 General: Appears in no apparent distress. uncomfortable, ill, Behavior is cooperative, vc appropriate for age, agitated. Pain: Complains of pain in anterior aspect of right upper chest. EENT: No signs and/or symptoms were reported regarding the EENT system. Neuro: Level of Consciousness is awake, alert, obeys commands, Oriented to person, place, time, situation. Cardiovascular: Reports chest pain. Respiratory: Airway is patent Respiratory effort is even, unlabored, Respiratory pattern is regular, symmetrical. GI: No signs and/or symptoms were reported involving the gastrointestinal system. : No signs and/or symptoms were reported regarding the genitourinary system. Derm: Skin temperature is cool. Musculoskeletal: Circulation, motion, and sensation intact. Range of motion: intact in all extremities. Historical: - Allergies: 12:06 No Known Allergies; vc - Home Meds: 12:06 CBD oil [Active]; vc - PMHx: 12:06 None; vc - PSHx: 12:06 None; vc - Immunization history:: Adult Immunizations up to date. - Coronavirus screen:: The patient has NOT traveled to [place] in the past 14 days. - Social history:: Smoking status: Patient uses street drugs, marijuana, marijuana but states just switch to CBD so he can pass a drug test.. - Family history:: not pertinent. - Ebola Screening: : No symptoms or risks identified at this time. Screenin:22 Abuse screen: Denies threats or abuse. Nutritional screening: No deficits noted. vc Tuberculosis screening: No symptoms or risk factors identified. Fall Risk None identified. Assessment: 12:00 Pain: Pain does not radiate. Pain began gradually, 1 day ago. vc 12:00 Reassessment: SEE TRIAGE ASSESSMENT. vc 13:00 Reassessment: Patient and/or family updated on plan of care and expected duration. Pain vc level reassessed. PATIENT LAYING WITH EYES CLOSED, CHEST RISING EQUALLY. 14:00 Reassessment: Patient and/or family updated on plan of care and expected duration. Pain vc level reassessed. PATIENT RESTING COMFORTABLY. 14:30 Reassessment: PATIENT DISCHARGED, WAITING ON RIDE TO [employer]. vc Vital Signs: 12:08 BP 108 / 79; Pulse 90; Resp 21; Temp 98.4; Pulse Ox 100% on R/A; Weight 88.45 kg; vc Height 5 ft. 8 in. (172.72 cm); Pain 10/10; 13:00 BP 102 / 83; Pulse 77; Resp 15; Pulse Ox 97% on R/A; vc 14:00 BP 121 / 78; Pulse 80; Resp 23; Pulse Ox 97% on R/A; vc 14:30 Temp 99.2(O); vc 12:08 Body Mass Index 29.65 (88.45 kg, 172.72 cm) vc ED Course: 11:46 Patient arrived in ED. ag5 11:50 Alicia Florez, URBANO is Primary Nurse. vc 11:51 Claus Houston MD is Attending Physician. [facility] 12:00 Arm band placed on. vc 12:00 EKG completed in triage. Results shown to MD. EKG completed in triage. Results shown to vc . 12:00 Patient has correct armband on for positive identification. Placed in gown. Bed in low vc position. Call light in reach. Side rails up X 1. monitor worker on. Pulse ox on. NIBP on. 12:00 Patient maintains SpO2 saturation greater than 95% on room air. vc 12:00 Inserted saline lock: 20 gauge in right forearm, using aseptic technique. Blood vc collected. 12:05 Triage completed. vc 14:30 No provider procedures requiring assistance completed. IV discontinued, intact, vc bleeding controlled, No redness/swelling at site. Pressure dressing applied. 14:57 Flu Sent. vc 14:57 CBC with Diff Sent. vc 14:58 XRAY Chest (1 view) Sent. vc Administered Medications: 12:55 Drug: TORadol 30 mg Route: IVP; Site: right forearm; vc 13:55 Follow up: Response: No adverse reaction; Pain is decreased vc 12:55 Drug: NS 0.9% 1000 ml Route: IV; Rate: 1 bolus; Site: right forearm; vc 13:55 Follow up: IV Status: Completed infusion; IV Intake: 1000ml vc 12:56 Drug: Aspirin 162 mg Route: PO; vc 13:55 Follow up: Response: No adverse reaction; Pain is decreased vc 14:38 Drug: Tamiflu 75 mg Route: PO; vc 14:38 Follow up: Response: Medication administered at discharge. vc 14:38 Follow up: Response: Medication administered at discharge. vc Intake: 13:55 IV: 1000ml; Total: 1000ml. vc Outcome: 14:06 Discharge ordered by . felicia 14:30 Condition: improved vc 14:30 Discharge instructions given to patient, Instructed on discharge instructions, follow up and referral plans. medication usage, Demonstrated understanding of instructions, follow-up care, medications, Prescriptions given X 3. 15:07 Discharged to home ambulatory, with family. vc 15:07 Patient left the ED. vc Signatures: Claus Houston MD MD cha Gaskin, Ajare ag5 Alicia Florez RN RN vc Corrections: (The following items were deleted from the chart) 14:56 14:41 Temp 99.2F Oral; vc vc
[2019-07-25 14:37] LABS: Blood Morphology Comment NOTED (NOT SEEN); Platelet Estimate ADEQ; Urine White Blood Cell Casts OK
[2019-07-25 14:38] LABS: Poikilocytosis 1+
[2019-07-25] MEDS ORDERED: OSELTAMIVIR 75 MG CAP ONE (14:39)
--- NOTE | 2019-07-25 15:26 | EKG ---
Test Date: 2019-07-25 Test Time: 11:55:47 Banquet Houseperson: TIMBO MEASUREMENT RESULTS: Intervals: Rate: 88 CA: 140 QRSD: 86 QT: 344 QTc: 416 [place]: P: 43 CA: 140 QRS: 36 T: 41 INTERPRETIVE STATEMENTS: Normal sinus rhythm Normal ECG Compared to ECG 02/11/2015 06:51:42 Sinus tachycardia no longer present Electronically Signed On 07-25-19 15:25:43 PRODUCTION ENGINE REPAIRER by Amaury Bloom
[2019-07-25 15:59] VITALS: O2SAT 97
[2019-07-25 16:00] VITALS: BP 121/78
[2019-07-25 16:01] VITALS: TEMP 99.2
== END 2019-07-25 15:07 | disposition home or self-care (01) ==
LOC: ER 11:42
DX: M94.0 Chondrocostal junction syndrome [Tietze] (principal); J09.X9 Influenza due to identified novel influenza A virus with other manifestations
CPT/HCPCS: 96361; 93005; 85025; 80048; 36415; 83735; 85610; 80076; 84484; 83880; 87804 ×2; 71045; 96374; 99285; J7030